=== PATIENT | female | born 1970 | race Caucasian/White ===

== ENCOUNTER 2018-04-16 15:00 | Outpatient (RCR) | payer BC, SELFPAY ==
--- NOTE | 2018-03-25 14:22 | PTTR_ITS ---
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 OBJECTIVE: Manual therapy: ([id number]). Pt received STM throughout the forearm flexor and extensor musculature as well as the palmar aspect. Pt then received stretching of the wrist into flexion/extension and radial/ ulnar deviation. Pt received CMC glides and mobilization to the MCP joint. Direct treatment time: 20 Total treatment time: 20
--- NOTE | 2018-04-01 15:20 | NT_ITS ---
NON TREATMENT NOTE: 04/01/18 Patient was a no show no call for today's scheduled appointment.
--- NOTE | 2018-04-06 15:28 | PTTR_ITS ---
DATE: 04/06/18 SUBJECTIVE: iI am doing okay for the most part, still noticing some strength deficits.. OBJECTIVE: Manual therapy: ([id number]): Patient was placed in supine and mobilized with soft tissue mobilization through the anterior and posterior forearm musculature. She was stretched with distraction through the radio carpal joint from 10 degrees of extension. She was then mobilized with palmar and dorsal glides of the carpal bones on a fixed distal radius. Patient stretched through the wrist into extension and flexion with good tolerance for end range. CMC joint mobilizations then applied through the thumb with fixed trapezius and dorsal and palmar glides of the proximal metacarpal, and MCP glides performed as well. Therapeutic procedures ([id number]). * X HEP review: Technique review and corrective modification where appropriate. * X Provided skilled instruction in proper exercise performance: [] * X Provided skilled manual cues to facilitate proper muscle recruitment and/ or movement pattern: [] * X Other: Patient was able to perform finger extension against resistance, wrist extensions to fatigue, isolated oppositional digit touching, and rows with full set up and lay out inspector. Direct treatment time: 30 minutes of direct patient care.
--- NOTE | 2018-04-16 15:05 | PTTR_ITS ---
DATE: 04/16/18 SUBJECTIVE: I am doing pretty well for the most part. OBJECTIVE: Manual therapy: ([id number]): Patient was placed in sitting the elbow and wrist in neutral position. She was first mobilized with soft tissue work through the distal anterior and posterior thigh. Patient then guided through distraction through the wrist at 10 degrees of extension. Dorsal and valencia glides of the carpal bones on a fixed distal radius are performed with good tolerance and then patient mobilized to end range extension and flexion. She is mobilized with metacarpal bone glides of the 1st digit on a fixed trapezius with good tolerance and then cmc and mcp extension and abduction. Patient is reviewed in her at home strengthening program. Direct treatment time: 30 minutes of direct patient care.
== END 2018-04-23 23:59 | disposition home or self-care (01) ==
LOC: PT 15:00
PROVIDERS: PCP Student in an Organized Health Care Education/Training Program; Referring Provider Nurse Practitioner Gerontology; Visit Provider Nurse Practitioner Gerontology
DX: Z47.89 Encounter for other orthopedic aftercare (principal); M19.042 Primary osteoarthritis, left hand
CPT/HCPCS: 97110; 97140

== ENCOUNTER 2018-07-06 15:37 | Outpatient (CLI) | payer BC, SELFPAY ==
[2018-07-06 15:58] LABS: Abs Immature Grans 0.01 k/cumm (0.0-0.09); Absolute Basophil Count 0.02 k/cumm (0.0-0.2); Absolute Lymphocyte Count 1.63 k/cumm (1.2-3.4); Absolute Neutrophil Count 4.59 k/cumm (1.2-6.7); Basophils % 0.3; Eosinophils % 1.5; HCT 40.1 % (36.0-46.0); HGB 12.9 g/dL (12.0-15.5); Immature Grans % 0.1; Lymphocytes % 24.1; Mean Corp. HGB Concentration 32.2 g/dL (32.0-36.0); Mean Corpuscular Hemoglobin 25.9 pg (27.0-33.0); Mean Corpuscular Volume 80.5 fL (80-95); Mean Platelet Volume 11.5 fL (8.0-11.0); Monocytes % 5.9; Neutrophils % 68.1; Platelet Count 232 x1000/uL (130-400); RBC 4.98 m/cumm (4.00-5.20); White Blood Cell Count 6.75 k/cumm (4.4-10.8)
[2018-07-06 18:48] LABS: ALT 33 U/L (12-78); AST 20 U/L (15-37); Albumin 3.6 g/dL (3.4-5.0); Alkaline Phosphatase 88 U/L (46-116); Anion Gap 6.7 mmol/L (3-11); BUN 22 mg/dL (7-18); Bilirubin, Total 0.4 mg/dL (0.2-1.0); CO2 31.3 mmol/L (21.0-32.0); CREATININE 0.93 mg/dL (0.55-1.02); Chloride 103 mmol/L (98-107); Glucose 100 mg/dL (70-100); Potassium 4.2 mmol/L (3.5-5.1); Sodium 141 mmol/L (136-145); Total Protein 7.1 g/dL (6.4-8.2)
== END 2018-07-06 15:57 ==
PROVIDERS: PCP Student in an Organized Health Care Education/Training Program; Visit Provider Student in an Organized Health Care Education/Training Program
DX: R01.1 Cardiac murmur, unspecified (principal); Q87.89 Other specified congenital malformation syndromes, not elsewhere classified
CPT/HCPCS: 36415; 80053; 85025

== ENCOUNTER 2018-07-07 16:48 | Outpatient (CLI) | payer BC, SELFPAY ==
[2018-07-09 13:15] LABS: Sirolimus 4.8 ng/mL
== END 2018-07-07 17:08 ==
LOC: LBN 16:49 → LBO 16:52
PROVIDERS: PCP Student in an Organized Health Care Education/Training Program; Visit Provider Student in an Organized Health Care Education/Training Program
DX: Q87.89 Other specified congenital malformation syndromes, not elsewhere classified (principal); R89.2 Abnormal level of other drugs, medicaments and biological substances in specimens from other organs, systems and tissues
CPT/HCPCS: 36415; 80048; 80195

== ENCOUNTER 2018-07-27 00:23 | Outpatient (CLI) | payer BC, SELFPAY ==
--- NOTE | 2018-07-27 10:25 | MERGE_ITS ---
*[facility]* *[facility]* [address] [place] [address] Date of study: 07/27/2018 Transthoracic Echocardiography M-mode, complete 2D, complete spectral Doppler, and color Doppler *STUDY CONCLUSIONS* Summary: 1. Left ventricle: The cavity size was normal. Wall thickness was increased in a pattern of mild LVH. Systolic function was normal. The estimated ejection fraction was 60-65%. Wall motion was normal; there were no regional wall motion abnormalities. Findings consistent with diastolic dysfunction. 2. Mitral valve: There was mild to moderate regurgitation. 3. Left atrium: The atrium was mildly dilated. 4. Right ventricle: The cavity size was normal. Wall thickness was normal. Systolic function was normal. *PATIENT PRESENTATION* Height: 170.2cm ((67in) ) S/D Pressure: 147 / 79 Weight: 106.6kg ((234.5lb) ) BSA: 2.29m^2 Test start time: 10:37 AM. Test stop time: 11:30 AM. PERFORMING Unknown PERFORMING [facility] DRAWING PRESS OPERATOR RT Mikhail (R)(CT), [facility] ORDERING Jane Thompson REFERRING Jane Thompson *PROCEDURE DATA* Procedure information: The patient was identified by two identifiers. This study was interpreted by [facility]. Pertinent images and digital data are archived for permanent storage and are available for subsequent review. Comparison was made to the study of 01/24/2015. Study status: Routine. Transthoracic echocardiography. M-mode, complete 2D, complete spectral Doppler, and color Doppler. A Transthoracic Echocardiogram was performed. Scanning was performed from the parasternal, apical, subcostal, and suprasternal notch acoustic windows. Images were obtained using an [id number] cardiac ultrasound machine. Image quality was adequate. Study completion: The patient tolerated the procedure well. There were no complications. History: PMH: Family hx of heart failure. Tuberous sclerosis, anemia, MOSLEY syndrome. cardiac murmur. *CARDIAC ANATOMY* Left ventricle: The cavity size was normal. Wall thickness was increased in a pattern of mild LVH. Systolic function was normal. The estimated ejection fraction was 60-65%. Wall motion was normal; there were no regional wall motion abnormalities. Findings consistent with diastolic dysfunction. Aortic valve: Trileaflet; normal thickness leaflets. Mobility was not restricted. Doppler: Transvalvular velocity was within the normal range. There was no stenosis. There was no significant regurgitation. VTI ratio of LVOT to aortic valve: 0.62. Valve area (VTI): 1.8cm^2. Indexed valve area (VTI): 0.8cm^2/m^2. Peak velocity ratio of LVOT to aortic valve: 0.61. Valve area (Vmax): 1.8cm^2. Indexed valve area (Vmax): 0.8cm^2/m^2. Mean velocity ratio of LVOT to aortic valve: 0.66. Valve area (Vmean): 1.9cm^2. Indexed valve area (Vmean): 0.8cm^2/m^2. Mean gradient (S): 7.5mm Hg. Peak gradient (S): 13.9mm Hg. Aorta: Aortic root: The aortic root was normal in size. Ascending aorta: The ascending aorta was normal in size. Mitral valve: Mildly thickened leaflets. Mobility was not restricted. Doppler: Transvalvular velocity was within the normal range. There was no evidence for stenosis. There was mild to moderate regurgitation. Valve area by pressure half-time: 4cm^2. Indexed valve area by pressure half-time: 1.8cm^2/m^2. Peak gradient (D): 4.5mm Hg. Left atrium: The atrium was mildly dilated. Right ventricle: The cavity size was normal. Wall thickness was normal. Systolic function was normal. Pulmonic valve: The pulmonary valve appears to be grossly normal. Doppler: Transvalvular velocity was within the normal range. There was no evidence for stenosis. There was no significant regurgitation. Peak gradient (S): 3.5mm Hg. Tricuspid valve: Structurally normal valve. Doppler: Transvalvular velocity was within the normal range. There was no evidence for stenosis. There was no significant regurgitation. Pulmonary artery: Pulmonary systolic pressure was within the normal range, in the range of 25mm Hg to 30mm Hg. Right atrium: The atrium was normal in size. Pericardium: There was no pericardial effusion. Systemic veins: Inferior vena cava: Well visualized. The vessel was patent and normal in size. The respirophasic diameter changes were blunted (less than 50%). Baseline ECG: Normal sinus rhythm. Measurements Left ventricle Value Reference LV ID, ED, PLAX 4.9 cm 3.5 - 6.0 LV ID, ES, PLAX 3.7 cm 2.1 - 4.0 LV PW thickness, ED, PLAX 1.1 cm LV end-diastolic volume, 1-p A2C 127 ml LV ejection fraction, 1-p A2C 64 % LV end-diastolic volume, 1-p A4C 144 ml LV ejection fraction, 1-p A4C 61 % LV e', lateral 0.086 m/sec LV E/e', lateral 12 LV e', medial 0.088 m/sec LV E/e', medial 12 LV e', average 0.087 m/sec LV E/e', average 12 Ventricular septum Value Reference IVS thickness, ED, PLAX 1.1 cm LVOT Value Reference LVOT ID, A-P 1.9 cm LVOT area 2.9 cm^2 LVOT peak velocity, S 1.14 m/sec LVOT mean velocity, S 0.84 m/sec LVOT VTI, S 26.7 cm LVOT peak gradient, S 5.2 mm Hg LVOT mean gradient, S 3.2 mm Hg Stroke volume (SV), LVOT DP 78 ml Stroke index (SV/bsa), LVOT DP 34 ml/m^2 Aortic valve Value Reference Aortic valve peak velocity, S 1.9 m/sec Aortic valve mean velocity, S 1.28 m/sec Aortic valve VTI, S 43.0 cm Aortic mean gradient, S 7.5 mm Hg Aortic peak gradient, S 13.9 mm Hg VTI ratio, LVOT/AV 0.62 Aortic valve area, VTI 1.8 cm^2 Velocity ratio, peak, LVOT/AV 0.61 Aortic valve area, peak velocity 1.8 cm^2 Velocity ratio, mean, LVOT/AV 0.66 Aortic valve area, mean velocity 1.9 cm^2 Aortic valve area/bsa, mean velocity 0.8 cm^2/m^2 Aorta Value Reference Aortic root ID, ED 3.2 cm Ascending aorta ID, A-P, S 3.1 cm Left atrium Value Reference LA ID, A-P, ES 4.1 cm LA ID/bsa, A-P 1.8 cm/m^2 <=2.2 LA area, ES, A4C 22 cm^2 8.8 - 23.4 LA area, ES, A2C 20 cm^2 LA volume/bsa, ES, 1-p A4C 37 ml/m^2 LA volume, ES, 2-p 70 ml LA volume/bsa, ES, 2-p 30 ml/m^2 LA/aortic root ratio 1.26 Mitral valve Value Reference Mitral E-wave peak velocity 1.06 m/sec Mitral A-wave peak velocity 1 m/sec Mitral deceleration time 189 ms 150 - 230 Mitral pressure half-time 55 ms Mitral peak gradient, D 4.5 mm Hg Mitral E/A ratio, peak 1.06 Mitral valve area, PHT, DP 4 cm^2 Mitral peak LV-LA gradient, S 110.5 mm Hg Mitral maximal regurg velocity, PISA 5.26 m/sec Mitral regurg VTI, PISA 142.4 cm Pulmonary veins Value Reference Pulmonary vein peak velocity, S 0.67 m/sec Pulmonary vein peak velocity, D 0.44 m/sec Pulmonary vein velocity ratio, peak, 1.53 S/D Pulmonary vein A-wave reversal peak 0.29 m/sec velocity Pulmonary vein A-wave reversal 126 ms duration Tricuspid valve Value Reference Tricuspid regurg peak velocity 2.5 m/sec Tricuspid peak RV-RA gradient 24.5 mm Hg Right atrium Value Reference RA area, ES, A4C 19.4 cm^2 8.3 - 19.5 Pulmonic valve Value Reference Pulmonic peak gradient, S 3.5 mm Hg Legend: (L) and (H) chandrika values outside specified reference range. I have personally reviewed the images and have reviewed and edited the reported findings. Electronically signed by Jayant Torres 07/27/2018 16:01
== END 2018-07-27 00:43 ==
PROVIDERS: PCP Student in an Organized Health Care Education/Training Program; Visit Provider Student in an Organized Health Care Education/Training Program
DX: R01.1 Cardiac murmur, unspecified (principal); I34.0 Nonrheumatic mitral (valve) insufficiency; I50.30 Unspecified diastolic (congestive) heart failure; D64.9 Anemia, unspecified; Z82.49 Family history of ischemic heart disease and other diseases of the circulatory system
CPT/HCPCS: 93306

== ENCOUNTER 2018-07-27 01:41 | Outpatient (CLI) | payer BC, SELFPAY ==
--- NOTE | 2018-07-27 | PFT_ITS ---
PULMONARY FUNCTION TEST REPORT Patient identification - Anjelica Fernandez DATE OF - 1970 DATE OF SERVICE - 07/27/2018 REQUESTING PROVIDER Jane Meier D.O. INTERPRETATION OF STUDY Spirometry shows no evidence of obstructive airways disease. No bronchodilator testing was carried out. LUNG VOLUMES - Lung volumes show no evidence of restriction. DIFFUSION CAPACITY- Normal. AIRWAY RESISTANCE - Normal. IMPRESSION Normal pulmonary function study. Clinical correlation recommended. When this study was compared to previous ones from 04/13/2013, 03/07/2014, 10/16/2014, 2014, 10/18/2015, 04/08/2016 and 02/17/2017, the patient has a generally stable FVC. FEV1 has also largely remained stable overall from 2017, there is a 160 cc decline. Anamaria Gifford M.D. TEJINDER/allison T - 07/29/2018
== END 2018-07-27 02:01 ==
PROVIDERS: PCP Student in an Organized Health Care Education/Training Program; Visit Provider Student in an Organized Health Care Education/Training Program
DX: Q87.89 Other specified congenital malformation syndromes, not elsewhere classified (principal); Q85.1 Tuberous sclerosis; R01.1 Cardiac murmur, unspecified; D64.9 Anemia, unspecified
CPT/HCPCS: 94150; 94726; 94729; 94010

== ENCOUNTER 2018-10-05 09:40 | Outpatient (CLI) | payer BC, SELFPAY ==
--- NOTE | 2018-10-05 06:00 | DI.RAD_ITS ---
SYMPTOM/DIAGNOSIS: LUMBAR SPONDYLOSIS C-ARM: Fluoroscopy Time: 81.4 seconds Fluoroscopy was utilized by Dr. Torres during the performance of a lumbar radiofrequency ablation procedure. Please refer to the procedure report for complete details.
[2018-10-05 09:45] VITALS: BP 140/88; PULSE 66; RESP 20; TEMP 36.3; O2SAT 99
[2018-10-05] MEDS: Midazolam 2 MG/2 ML VIAL IVP (10:11)
[2018-10-05] MEDS: fentaNYL 100 MCG/2 ML VIAL IVP ×2 (10:11→10:16)
[2018-10-05] MEDS: Lactated Ringers 1,000 ML 80 ML IV (10:13)
[2018-10-05 10:47] VITALS: BP 161/88; PULSE 70; RESP 13; O2SAT 99
--- NOTE | 2018-10-05 10:51 | PDOC.PAIN ---
Pain Clinic Procedure Note Current Active Problems Problem Status Onset Spondylosis of lumbar region without myelopathy or radiculopathy Chronic LUMBAR/SACRAL MEDIAL BRANCH RADIOFREQUENCY WITH THE COOLIEF MACHINE MAGUI CHAIDEZ has been referred to the [facility] for radiofrequency treatment of chronic axial back pain. MAGUI has had long standing back pain thought to be facet joint generated and which has been refractory to other therapies. Local anesthetic medial branch blocks or intra-articular facet joint injections resulted in MAGUI reporting reduction of the usual axial component of pain for at least the duration of the local anesthetic effect. COMMENTS: She had >6 months of relief with her last bilateral L3-L5DR RFA from 02/10/18. Patient was interviewed and the medical record reviewed. There were no medical, pharmacologic, radiographic or other structural contraindications to attempting fluoroscopically guided radiofrequency treatment. Risks and expected side effects as well as potential benefit of the procedure were reviewed and voiced concerns addressed. The printed consent form was signed and witnessed. Standard time-out procedure was performed. Patient was placed in the prone position on the fluoroscopy table and automated blood pressure cuff and pulse oximeter applied. The skin entry points for approaching the anatomic target points of the segmental medial branches of bilateral L3-L5DR were identified with fluoroscopy and marked. Following thorough Chlorhexadine preparation of the skin and draping and 1% lidocaine infiltration of the skin entry points and subcutaneous tissues, a single 18 guage curved 10 cm 10mm active tip radiofrequency cannula was placed under fluoroscopic guidance along or across the anatomic course of each respective segmental medial branch. Each placement was stimulated at 50Hz and les then 0.5V for medial branch sensory localization and the at 2Hz and up to 3 times the sensory voltage without any evidence of distal myotomal stimulation. 1cc of 1% ;idocaine was injected at each site. At each placement a continuous mode radiofrequency treatment was done at 80 degrees C for 90secs and then 1/3 cc of depomedrol (40 mg/cc) and 1 cc of 0.5% Bupivacaine was injected at each segmental nerve. The needles were removed without difficulty. This radiofrequency treatment should result in the denervation of the bilateral L4-L5 and L5-S1 FACET JOINTS.~ A total of 4 facets were expected to be denervated from today's treatment. Vital signs were stable throughout the procedure and were as recorded in the docflowsheet by the nursing staff. If given, dosages of intravenous drugs for anxiolysis and analgesia were documented in the Medication Administration Record (MAR). Follow up plans and appointments were discussed. Post procedure instruction was given as documented in the nursing documentation and having met discharge criteria, MAGUI was discharged from the [facility]. COMMENTS: If this procedure give her >6 months of relief, she can have this procedure repeated without repeating the LMBBs. CC: Jane Thompson DO
[2018-10-05] MEDS: Bupivacaine 0.5% Pres-Free 30 ML VIAL IJ (10:55)
[2018-10-05] MEDS: methylPREDNISolone ACETATE 40 MG/ML VIAL IM (10:55)
[2018-10-05 11:45] VITALS: PULSE 10
[2018-10-05] MEDS: Lidocaine 2% Pres-Free 5 ML VIAL IJ (11:45)
== END 2018-10-05 10:00 ==
PROVIDERS: PCP Student in an Organized Health Care Education/Training Program; Visit Provider Preventive Medicine Occupational Medicine
DX: M47.816 Spondylosis without myelopathy or radiculopathy, lumbar region (principal)
CPT/HCPCS: 64635; 64636; 72100; J1030; J2250; J3010

== ENCOUNTER 2019-02-11 01:18 | Outpatient (CLI) | payer BC, SELFPAY ==
--- NOTE | 2019-02-11 08:01 | DI.CT_ITS ---
SYMPTOM/DIAGNOSIS: ASSESS PAINFUL BULGE LAT TO UBIL LLQ, LLQ PAIN R19.00, R10.32 CT ABDOMEN AND PELVIS: There are no prior comparison exams. The exam is mildly limited by patient motion. Images performed from the lung bases through the ischial tuberosities after IV and oral contrast. There is a lower midline anterior abdominal wall incision. There is a defect in the anterior abdominal wall to the left of the umbilicus measuring 4 x 6 cm. There are loops of small bowel seen herniating through the defect. Small defect is also seen to the right of the umbilicus containing a loop of small bowel. There is no evidence of bowel obstruction. Two additional fatty containing hernias are seen in the midline of the anterior abdominal wall superiorly. Lung bases show multiple tiny cysts. The liver shows fatty infiltration and multiple tiny cysts. The patient is status post cholecystectomy. There is no biliary dilatation. There is a small hiatal hernia. The spleen, pancreas, and adrenals are unremarkable. There are several tiny bilateral renal cysts. There are surgical clips on the left side of the lower pelvis. This may be secondary to left oophorectomy. The right ovary and uterus are unremarkable. The urinary bladder is nearly empty. Degenerative disc changes are seen at L4-5. IMPRESSION: Hernia containing loops of nonobstructed small bowel to the left of the umbilicus. Additional small hernias to the right side of the umbilicus containing a loop of small bowel. Tiny fatty containing hernias are seen in the midline superiorly.
[2019-02-11] MEDS: Omnipaque 350 MG/ML 100 ML BTL IJ (10:23)
[2019-02-11] MEDS: Breeza Beverage 473 ML BTL PO ×2 (10:24→10:25)
[2019-02-11] MEDS: Omnipaque 350 MG/ML 50 ML BTL PO (10:24)
== END 2019-02-11 01:38 ==
PROVIDERS: PCP Student in an Organized Health Care Education/Training Program; Visit Provider Nurse Practitioner Adult Health
DX: R10.32 Left lower quadrant pain (principal); R19.05 Periumbilic swelling, mass or lump; K43.9 Ventral hernia without obstruction or gangrene; K76.0 Fatty (change of) liver, not elsewhere classified; K76.89 Other specified diseases of liver; K44.9 Diaphragmatic hernia without obstruction or gangrene
CPT/HCPCS: 74177; J3490; Q9967